=== PATIENT | female | born 1980 | race Caucasian/White ===

== ENCOUNTER 2023-04-09 08:28 | Observation (INO) | payer OTHER, SELFPAY ==
[2023-04-09 08:31] VITALS: BP 128/87
[2023-04-09 08:32] VITALS: BP 128/87; PULSE 75; PULSE 76; RESP 16; TEMP 36.9; O2SAT 100
--- NOTE | 2023-04-09 08:40 | ED_ITS ---
HPI - Nausea/Vomiting/Diarrhea General Chief complaint: Nausea/Vomiting/Diarrhea Stated complaint: N/V/D Time Seen by Provider: 04/09/23 08:30 Source: patient Mode of arrival: EMS Limitations: no limitations History of Present Illness HPI Narrative: 42-year-old female who for the past 4 days has had issues with both nausea vomiting and also diarrhea. Initially thought that maybe she was constipated so she took some laxatives. Has had abdominal cramping since then. Threw up this morning. Pain seems to come in waves. She does have history of diverticulitis. States this feels somewhat different than diverticulitis. No urinary symptoms. She did receive Zofran by EMS prior to arrival. She thinks that maybe it has helped her nausea somewhat. No fevers. Related Data Home Medications Medication Instructions Recorded Confirmed Enbrel 04/09/23 Vyvanse 04/09/23 albuterol sulfate 90 mcg/actuation 2 puff inhalation Q6H PRN asthma 04/09/23 04/09/23 aerosol inhaler bupropion HCl 04/09/23 Allergies Allergy/AdvReac Type Severity Reaction Status Date / Time Sulfa (Sulfonamide Allergy Verified 04/09/23 08:39 Antibiotics) Review of Systems Constitutional Constitutional: Reports system reviewed and no additional complaints, except as documented Cardiovascular Cardiovascular: Reports system reviewed and no additional complaints, except as documented Respiratory Respiratory: Reports system reviewed and no additional complaints, except as documented Gastrointestinal Gastrointestinal: Reports system reviewed and no additional complaints, except as documented Integumentary/Breasts Skin/Breast: Reports system reviewed and no additional complaints, except as documented Neurologic Neurologic: Reports system reviewed and no additional complaints, except as documented Hematologic/Lymphatic On Anticoagulants: No Patient History Medical History (Updated 04/09/23 @ 11:10 by Jamarcus Jaimes MD) Asthma HTN (hypertension) Rheumatoid arthritis Social History household members: spouse Smoking Status: Never smoker Exam Initial Vital Signs Initial Vital Signs: Vital Signs Blood Pressure 128/87 04/09/23 08:31 HENMT Head: normal to inspection and normocephalic Resp Effort & Inspection: normal respiratory effort Auscultation: clear to auscultation bilaterally Cardio Rate: regular rate GI Inspection: normal to inspection and non-distended Palpation: soft, No firm, No guarding and tender Skin General: no rashes or lesions noted Neuro General: patient alert, patient awake and moves all extremities Extrem General: normal to inspection and capillary refill normal Course Orders Ordered: ED Orders 04/09/23 08:30 Urinalysis and Microscopic Stat 04/09/23 08:34 Basic Metabolic Panel Stat Complete Blood Count AUTO DIFF Stat Test Serum,Qual Stat 04/09/23 08:39 CT abdomen pelvis w con Stat 04/09/23 10:01 Consult to General Surgery Stat Acetaminophen (Acetaminophen 325 Mg Tablet) 650 mg PO Q6H PRN PRN Reason: Fever/Mild Pain (1-3) Calcium Carbonate (Calcium Carbonate 500 Mg Tab) 1,000 mg PO Q4HR PRN PRN Reason: Dyspepsia Celecoxib (Celecoxib 200 Mg Capsule) 200 mg PO BID AURELIA Hydromorphone HCl (Hydromorphone 0.5 Mg Inj) 0.5 mg IV Q2H PRN PRN Reason: Pain, Severe (7-10) Dextrose/Sodium Chloride (Dextrose 5%-0.45% Ns) 1,000 mls @ 100 mls/hr IV CONT AURELIA Piperacillin Sod/Tazobactam (Sod 3.375 gm/ Sodium Chloride) 100 mls @ 25 mls/hr IV Q8H AURELIA Naloxone HCl (Naloxone 0.4 Mg/Ml Vial) 0.2 mg IV Q2MIN PRN PRN Reason: Opiate Reversal Ondansetron HCl (Ondansetron 4 Mg/2 Ml Inj) 4 mg IV Q8HR PRN PRN Reason: Nausea And Vomiting Oxycodone HCl (Oxycodone Ir 5 Mg Tablet) 5 mg PO Q3H PRN PRN Reason: Pain, Moderate (4-6) Discontinued Medications Sodium Chloride (Normal Saline 0.9%) 1,000 mls @ 1,000 mls/hr IV BOLUS ONE Stop: 04/09/23 09:29 Last Infusion: 04/09/23 09:59 Dose: Infused Documented By: Admin: 04/09/23 08:47 Dose: 1,000 mls/hr Documented By: ISATU Piperacillin Sod/Tazobactam (Sod 4.5 gm/ Sodium Chloride) 100 mls @ 200 mls/hr IV NOW ONE Stop: 04/09/23 10:02 Last Infusion: 04/09/23 10:43 Dose: Infused Documented By: Admin: 04/09/23 10:12 Dose: 200 mls/hr Documented By: CAREN Ketorolac Tromethamine (Ketorolac 30 Mg/Ml Vial) 30 mg IV NOW ONE Stop: 04/09/23 08:40 Last Admin: 04/09/23 08:48 Dose: 30 mg Documented By: ISATU Ondansetron HCl (Ondansetron 4 Mg/2 Ml Inj) 4 mg IV NOW ONE Stop: 04/09/23 08:31 Last Admin: 04/09/23 08:47 Dose: 4 mg Documented By: ISATU Pantoprazole Sodium (Pantoprazole 40 Mg Vial) 40 mg IV NOW ONE Stop: 04/09/23 08:40 Last Admin: 04/09/23 08:48 Dose: 40 mg Documented By: ISATU Vital Signs Vital signs: Vital Signs - 8 hr 04/09/23 08:31 04/09/23 08:32 04/09/23 08:32 Temperature 98.4 F Pulse Rate 76 75 Respiratory Rate 16 Blood Pressure 128/87 128/87 Pulse Oximetry 100 100 Oxygen Delivery Method Room Air MDM - Nausea/Vomiting/Diarrhea Lab Data Attestation: I reviewed the patient's lab results. 04/09/23 08:34 04/09/23 08:34 Labs: Lab Results 04/09/23 Range/Units 08:34 WBC 12.3 H (4.5-11.0) X10^3/uL RBC 4.31 (4.0-5.2) X10^6/uL Hgb 13.3 (12.0-16.0) g/dL Hct 39.2 (36-46) % MCV 91.1 (80-100) fL MCH 30.8 (26-34) PG MCHC 33.8 (30-36) % RDW 13.1 (11.6-14.8) % Plt Count 199 (150-400) X10^3/uL Neut % (Auto) 81.6 H (50-75) % Lymph % (Auto) 8.3 L (25-40) % [place] % (Auto) 9.3 (3-14) % Eos % (Auto) 0.6 L (2-4) % Baso % (Auto) 0.2 (0-2) % Neut # (Auto) 57469 H (4314-3189) /uL Lymph # (Auto) 1000 L (9235-1462) /uL [place] # (Auto) 1100 H (0-900) /uL Eos # (Auto) 100 (0-450) /uL Baso # (Auto) 0 (0-100) /uL Sodium 133 L (137-145) mmol/L Potassium 3.6 (3.4-5.1) mmol/L Chloride 103 (98-107) mmol/L Carbon Dioxide 18 L (22-32) mmol/L BUN 5 L (7-17) mg/dL Creatinine 0.71 (0.52-1.04) mg/dL Estimated GFR > 60 (>60) mL/min BUN/Creatinine Ratio 7.0 (6-22) Glucose 88 (70-100) mg/dL Calcium 8.9 (8.4-10.2) mg/dL Serum , Qual Negative (Negative) Imaging Data CT scan - abdomen/pelvis: Radiologist's Impression: PROCEDURE: CT ABDOMEN PELVIS W CON INDICATIONS: Abdominal pain, history of diverticulitis TECHNIQUE: After the administration of oral and IV contrast, axial sections were acquired from the lung bases to the pubic symphysis. Coronal and sagittal reformats were performed. For radiation dose reduction, the following was used: automated exposure control, adjustment of mA and/or kV according to patient size. COMPARISON: None. FINDINGS: Image quality: Excellent. Lung bases: 2 mm solid nodule, right lower lobe (series 3, image 7). Heart: No significant findings. ABDOMEN: Liver: No solid mass. Focal fat adjacent to the falciform ligament. Gallbladder: Gallbladder sludge versus small stones. No wall thickening or pericholecystic edema to suggest acute cholecystitis. Biliary ducts: No biliary dilation. Pancreas: No ductal dilation. Spleen: Size is within normal limits. Adrenal Glands: No adrenal nodules. Kidneys and Ureters: No hydronephrosis. No solid mass. No complex renal cystic lesion which requires follow up. Reactive urothelial wall thickening of the right middle ureter Stomach and Bowel: Acute appendicitis. The wall demonstrates enhancement, but some degree of irregularity. Edema within the mesentery. No adjacent gas. No obstructing appendicolith identified. Peritoneum: Small volume free fluid. No free air. Ventral Wall: No hernia. Abdominal Nodes: No retroperitoneal or mesenteric adenopathy by size criteria. Vessels: Aorta and inferior vena cava are normal in size. PELVIS: Pelvic Organs: Unremarkable. Bladder: Unremarkable. Pelvic Nodes: No enlarged lymph nodes. Miscellaneous: No inguinal hernias are seen. Bones: Unremarkable. IMPRESSION: Acute appendicitis without perforation or abscess. MDM Narrative Medical decision making narrative: CT scan today is consistent with acute appendicitis. Patient states she does feel better after Toradol and other nausea medications and fluids. Discussed the case with Dr. Jaimes on-call for General surgery. He evaluated the patient here in the emergency department. Will admit for further evaluation and treatment. Discussed the diagnosis with the patient. She expressed understanding and agreement as well. Discharge Plan Departure Patient Disposition: Admitted As Inpatient Clinical Impression: Acute appendicitis Qualifiers: Acute appendicitis type: unspecified acute appendicitis type Qualified Code(s): K35.80 - Unspecified acute appendicitis Admit Date/Time: 04/09/23 10:29 Admit Provider: Jamarcus Jaimes
[2023-04-09 08:42] LABS: Add Manual Diff / Slide Review NO; Basophils Absolute Auto 0 /uL (0-100); Basophils Percent Auto 0.2 % (0-2); Eosinophils Absolute Auto 100 /uL (0-450); Eosinophils Percent Auto 0.6 % (2-4); Hematocrit 39.2 % (36-46); Hemoglobin 13.3 g/dL (12.0-16.0); Lymphocytes Absolute Auto 1000 /uL (1100-4500); Lymphocytes Percent Auto 8.3 % (25-40); Mean Corpuscular HGB Conc 33.8 % (30-36); Mean Corpuscular Hemoglobin 30.8 PG (26-34); Mean Corpuscular Volume 91.1 fL (80-100); Monocytes Absolute Auto 1100 /uL (0-900); Monocytes Percent Auto 9.3 % (3-14); Neutrophils Absolute Auto 10100 /uL (1500-7000); Neutrophils Percent Auto 81.6 % (50-75); Platelet Count 199 X10^3/uL (150-400); Red Blood Cell Count 4.31 X10^6/uL (4.0-5.2); Red Cell Distribution Width 13.1 % (11.6-14.8); White Blood Cell Count 12.3 X10^3/uL (4.5-11.0)
[2023-04-09] MEDS: ONDANSETRON 4 MG/2 ML INJ IV (08:47)
[2023-04-09] MEDS: SODIUM CHLORIDE 0.9% 1,000 ML 1000 ML IV (08:47)
[2023-04-09] MEDS: PANTOPRAZOLE 40 MG VIAL IV (08:48)
[2023-04-09] MEDS: KETOROLAC 30 MG/ML VIAL IV ×2 (08:48→16:34)
[2023-04-09 08:53] LABS: Blood Urea Nitrogen 5 mg/dL (7-17); Calcium 8.9 mg/dL (8.4-10.2); Carbon Dioxide 18 mmol/L (22-32); Chloride 103 mmol/L (98-107); Estimated Glomerular Filt Rate > 60 mL/min (>60); Glucose 88 mg/dL (70-100); HEMOLYSIS < 15 (0-50); Potassium 3.6 mmol/L (3.4-5.1); Sodium 133 mmol/L (137-145)
[2023-04-09 09:00] LABS: Pregnancy Test Serum,Qual Negative (Negative)
[2023-04-09] MEDS: PIPERACILLIN/TAZO 4.5 GM in SODIUM CHLORIDE 0.9% 100 ML IV (10:12)
--- NOTE | 2023-04-09 11:07 | P.HP_ITS ---
History of Present Illness History of Present Illness Date Patient Seen: 04/09/23 Time Patient Seen: 11:07 Chief complaint: N/V/D Narrative: 42-year-old woman past medical history rheumatoid arthritis and asthma who presents to the [facility] Emergency Department with abdominal pain. Several days of nausea vomiting diarrhea. At admission afebrile, WBC 12.[address] abdomen pelvis demonstrates acute non perforated appendicitis without abscess or fecalith. No prior abdominal surgery. Pain is significantly improved since time of admission. FOR[facility] Medical History (Updated 04/09/23 @ 11:10 by Jamarcus Jaimes MD) Asthma HTN (hypertension) Rheumatoid arthritis Meds Home Medications and Allergies Home Medications Medication Instructions Recorded Confirmed Type Enbrel 04/09/23 History Vyvanse 04/09/23 History albuterol sulfate 90 mcg/actuation 2 puff inhalation Q6H PRN asthma 04/09/23 04/09/23 History aerosol inhaler bupropion HCl 04/09/23 History Allergies Allergy/AdvReac Type Severity Reaction Status Date / Time Sulfa (Sulfonamide Allergy Verified 04/09/23 08:39 Antibiotics) Exam Vital Signs (past 8 hours): - 04/09/23 08:31 04/09/23 08:32 04/09/23 08:32 Temperature 98.4 F Pulse Rate 76 75 Respiratory Rate 16 Blood Pressure 128/87 128/87 Pulse Oximetry 100 100 Oxygen Delivery Method Room Air Oxygen Delivery Method Room Air Narrative Exam Narrative: GENERAL: A well nourished, well developed adult woman, resting comfortably, in no acute distress. HEENT: Normocephalic, atraumatic. No scleral icterus CHEST: Rising symmetrically. No audible wheezes CARDIOVASCULAR: Warm and well perfused. Regular rate ABDOMEN: Soft, minimally tender right lower quadrant no peritonitis EXTREMITIES: Normal tone and without edema. NEUROLOGIC: Moving all extremities spontaneously. No gross motor deficits. Objective Labs 04/09/23 08:34 04/09/23 08:34 Labs: Laboratory Results - last 24 hr 04/09/23 08:34 WBC 12.3 H RBC 4.31 Hgb 13.3 Hct 39.2 MCV 91.1 MCH 30.8 MCHC 33.8 RDW 13.1 Plt Count 199 Neut % (Auto) 81.6 H Lymph % (Auto) 8.3 L [place] % (Auto) 9.3 Eos % (Auto) 0.6 L Baso % (Auto) 0.2 Neut # (Auto) 18326 H Lymph # (Auto) 1000 L [place] # (Auto) 1100 H Eos # (Auto) 100 Baso # (Auto) 0 Sodium 133 L Potassium 3.6 Chloride 103 Carbon Dioxide 18 L BUN 5 L Creatinine 0.71 Estimated GFR > 60 BUN/Creatinine Ratio 7.0 Glucose 88 Calcium 8.9 Serum , Qual Negative Assessment & Plan Assessment and plan (1) Acute appendicitis: Qualifiers: Acute appendicitis type: unspecified acute appendicitis type Qualified Code(s): K35.80 - Unspecified acute appendicitis Status: Acute Assessment & Plan narrative: 42-year-old woman PMH rheumatoid arthritis and hypertension with acute uncomplicated appendicitis. Imaging and laboratory studies were reviewed. CT abdomen pelvis demonstrates acute non perforated appendicitis no abscess or fecalith. Discussed management of appendicitis with patient and specifically antibiotic therapy versus appendectomy. Following discussion her preference is to proceed with antibiotic therapy. Recommend observation with IV antibiotic therapy if improved can discharge home tomorrow on oral antibiotics if failure to improve proceed with appendectomy
[2023-04-09 11:14] VITALS: BMI 28.8
[2023-04-09] MEDS: DEXTROSE 5%-0.45% NS 1,000 ML 100 ML IV ×2 (11:56→21:46)
[2023-04-09 11:57] LABS: Appearance Urine UA CLEAR; Bilirubin Urine UA NEGATIVE (NEGATIVE); Color Urine UA YELLOW; Glucose Urine UA NEGATIVE (Negative); Ketones Urine UA 2+ (NEGATIVE); Leukocyte Esterase Urine UA NEGATIVE (NEGATIVE); Nitrite Urine UA NEGATIVE (Negative); Occult Blood Urine UA NEGATIVE (Negative); Protein Urine UA NEGATIVE (Negative); Specific Gravity Urine UA <=1.005 (1.000-1.035); Urobilinogen Urine UA 0.2 E.U./dL (0.2)
[2023-04-09 12:02] LABS: Bacteria Urine None Seen; RBC Urine None Seen (0-5/HPF); Squamous Epithelial Cell Urine None Seen (0-5/HPF); WBC Urine None Seen (0-5/HPF)
[2023-04-09 12:03] LABS: Culture Indicated Urine Cult Not Indicated
--- NOTE | 2023-04-09 12:56 | PC.NURSE ---
Addendum entered by Maida Duarte R.N. 04/09/23 14:55: Patient is resting comfortably and states that her lunch actually helped her feel better. She denies discomfort at this time. Original Note: Patient is comfortable and lying on her r.side, she has D51/2NS infusing at 100cc/hr. She ate a general diet, which is gluten free. Will offer patient some toradol after she is through with her lunch. She is here for r.lower quad pain and will be doing iv antibiotics for 24 hours to see if this helps her not need surgery. Her SO is here and visiting. Patient is resting comfortably.
[2023-04-09 13:00] VITALS: BP 149/75; PULSE 85; RESP 16; TEMP 36.3; O2SAT 97
[2023-04-09 17:00] VITALS: BP 108/73; PULSE 82; RESP 16; TEMP 36.4; O2SAT 98
[2023-04-09] MEDS: PIPERACILLIN/TAZO 3.375 GM in SODIUM CHLORIDE 0.9% 100 ML IV (18:34)
[2023-04-09 19:52] VITALS: BP 103/68; PULSE 74; RESP 18; TEMP 36; O2SAT 98
[2023-04-09 21:05] VITALS: O2SAT 98
[2023-04-09] MEDS: ACETAMINOPHEN 325 MG TABLET 650 MG PO (23:28)
[2023-04-10 00:31] VITALS: BP 98/65; PULSE 67; RESP 18; TEMP 35.9; O2SAT 97
[2023-04-10 01:00] VITALS: O2SAT 97
[2023-04-10] MEDS: PIPERACILLIN/TAZO 3.375 GM in SODIUM CHLORIDE 0.9% 100 ML IV ×2 (01:16→10:39)
--- NOTE | 2023-04-10 04:08 | PC.NURSE ---
lieutenant shift supervisor: Patient is AxOx4, VSS, O2 97% on RA. Mild pain in RLQ well controlled w/ IV Toradol & Tylenol. Denies nausea, SOB, chest pain. OOB independently, ambulates self to bathroom, tolerates ambulation well. Patient took a shower before bed. PIV in left AC infusing fluids & abx as ordered. Tolerating food & PO fluids well. Will continue to monitor.
[2023-04-10 04:37] VITALS: BP 109/72; PULSE 68; RESP 18; TEMP 35.9; O2SAT 94
[2023-04-10 05:00] VITALS: O2SAT 94
--- NOTE | 2023-04-10 08:31 | PC.NURSE ---
Patient denies pain at this time. She is eating breakfast and has been up to the bathroom. Bowel tones are positive but hypoactive. Tolerating iv antibiotics and fluids well.
[2023-04-10 08:48] VITALS: BP 124/76; PULSE 71; RESP 18; TEMP 36.4; O2SAT 95
[2023-04-10] MEDS: DEXTROSE 5%-0.45% NS 1,000 ML 100 ML IV (10:46)
[2023-04-10 11:20] LABS: Add Manual Diff / Slide Review NO; Basophils Absolute Auto 0 /uL (0-100); Basophils Percent Auto 0.6 % (0-2); Eosinophils Absolute Auto 200 /uL (0-450); Eosinophils Percent Auto 4.6 % (2-4); Hemoglobin 12.3 g/dL (12.0-16.0); Lymphocytes Absolute Auto 1400 /uL (1100-4500); Lymphocytes Percent Auto 29.6 % (25-40); Mean Corpuscular HGB Conc 35.2 % (30-36); Mean Corpuscular Hemoglobin 31.3 PG (26-34); Monocytes Absolute Auto 700 /uL (0-900); Monocytes Percent Auto 14.3 % (3-14); Neutrophils Absolute Auto 2400 /uL (1500-7000); Neutrophils Percent Auto 50.9 % (50-75); Platelet Count 179 X10^3/uL (150-400); Red Blood Cell Count 3.93 X10^6/uL (4.0-5.2); Red Cell Distribution Width 13.4 % (11.6-14.8); White Blood Cell Count 4.7 X10^3/uL (4.5-11.0)
[2023-04-10 12:25] VITALS: BP 129/82; PULSE 63; RESP 18; TEMP 36.4; O2SAT 97
--- NOTE | 2023-04-10 12:59 | PM.PN.1 ---
Subjective Subjective Date Patient Seen: 04/10/23 Interval history: Feeling better today. Minimal pain. White count normal. Exam Vital Signs (past 8 hours): - 04/10/23 05:00 04/10/23 08:48 04/10/23 09:00 Temperature 97.5 F L Pulse Rate 71 Respiratory Rate 18 Blood Pressure 124/76 Pulse Oximetry 94 95 Oxygen Delivery Method Room Air Room Air Oxygen Flow Rate 0 04/10/23 12:25 Temperature 97.6 F Pulse Rate 63 Respiratory Rate 18 Blood Pressure 129/82 Pulse Oximetry 97 Oxygen Delivery Method Oxygen Flow Rate 0 Oxygen Delivery Method Room Air Oxygen Flow Rate 0 Narrative Exam Narrative: Abdomen is soft No peritonitis Objective Labs 04/10/23 11:15 04/09/23 08:34 Labs: Laboratory Results - last 24 hr 04/10/23 11:15 WBC 4.7 D RBC 3.93 L Hgb 12.3 Hct 35.0 L MCV 89.0 MCH 31.3 MCHC 35.2 RDW 13.4 Plt Count 179 Neut % (Auto) 50.9 D Lymph % (Auto) 29.6 D [place] % (Auto) 14.3 H Eos % (Auto) 4.6 H Baso % (Auto) 0.6 Neut # (Auto) 2400 Lymph # (Auto) 1400 [place] # (Auto) 700 Eos # (Auto) 200 Baso # (Auto) 0 PFSH Medical History (Updated 04/09/23 @ 11:10 by Jamarcus Jaimes MD) Asthma HTN (hypertension) Rheumatoid arthritis Social History household members: spouse Smoking Status: Never smoker Assessment & Plan Assessment and plan (1) Acute appendicitis: Qualifiers: Acute appendicitis type: unspecified acute appendicitis type Qualified Code(s): K35.80 - Unspecified acute appendicitis Status: Acute Plan Okay to discharge home after she finishes her current Zosyn. She will have Augmentin for the next week and follow up CT scan will be ordered. Quality VTE Deep Vein Thrombosis/Pulmonary Embolism Present on Admission: No
--- NOTE | 2023-04-10 16:32 | CM.DANOTE ---
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 Per provider note, likely to dc today on oral antibiotics. From RN, likely no needs from CM team. Patient left prior to being seen by this author. Home with oral antibiotics, transport in POV. CM team will continue to follow as needed. WICHO Roth Discharge Planning/Care Management CM Discharge Assessment Start: 04/10/23 16:31 Freq: Status: Active Protocol: Document 04/10/23 16:31 (Rec: 04/10/23 16:32 [id number]) Discharge Planning Assessment Assigned Voice Pathologist WICHO Leos DPOA/Assigned Designee Name Andrew Rios () Contact Information [phone] Advance Directives? No History Provided By Medical Record Household Members spouse Barriers to Discharge No Discharge Plan Home Referrals Initiated None needed Whiteboard Updated in Patient Room with No name and ext. # of Voice Pathologist Review Status In Process Next Review Type Continued Stay Review
== END 2023-04-10 15:00 | disposition home or self-care (01) ==
LOC: ED 10:20 → AC 10:34
PROVIDERS: Surgery; Admitting Provider Surgery; Emergency Provider Emergency Medicine; Referring Provider Emergency Medicine; Visit Provider Surgery
DX: K35.80 Unspecified acute appendicitis (principal); R19.7 Diarrhea, unspecified
CPT/HCPCS: 36415; 74177; 80048; 81001; 84703; 85025; 96365; 96366; 96375; 96376; 99231; 99232; 99284; 99285; G0378; C9113; J1885; J2405; J2543